=== PATIENT | male | born 1970 | race Asian ===

== ENCOUNTER 2021-04-18 07:49 | Day surgery (SDC) | payer OTHER, SELFPAY ==
[~2021-04-18] VITALS: Ht 165.1 cm; Wt 63.5 kg
[2021-04-18] MEDS ORDERED: INDOMETHACIN 50 MG SUPP.RECT RC ONE (08:00)
[2021-04-18] MEDS ORDERED: NS IRRIG SOLN 1000 ML IR ONE (10:35)
[2021-04-18] MEDS ORDERED: fentaNYL CITRATE/PF 100 MCG/2 ML AMP IVP ONE (10:35)
[2021-04-18] MEDS ORDERED: MIDAZOLAM HCL 5 MG/5 ML VIAL IVP ONE (10:35)
[2021-04-18] MEDS ORDERED: LR 500 ML IV.SOLN IV ONE (10:35)
[2021-04-18] MEDS ORDERED: ISOVUE-300 (IOPAMIDOL) 100 ML INFUS..BTL IV ONE (10:35)
[2021-04-18] MEDS ORDERED: NS 1000 ML IV.SOLN IV ONE (10:35)
[2021-04-18] MEDS ORDERED: PROPOFOL 200MG/ 20ML VIAL (DIPRIVAN) IV ONE (10:35)
[2021-04-18] MEDS ORDERED: ONDANSETRON HCL 4 MG/2 ML VIAL IVP PRN (11:00)
[2021-04-18] MEDS ORDERED: fentaNYL CITRATE/PF 100 MCG/2 ML AMP IVP PRN (11:00)
[2021-04-18] MEDS ORDERED: fentaNYL CITRATE/PF 100 MCG/2 ML AMP ONE (11:48)
[2021-04-18] MEDS: fentaNYL CITRATE/PF 100 MCG/2 ML AMP IVP PRN ×2 (11:57→12:04)
[2021-04-18] MEDS ORDERED: EPINEPHrine JECT 0.1 MG/ML SYR ONE (12:20)
[2021-04-18 14:06] VITALS: BP_SYST 101
== END 2021-04-18 13:40 | disposition home or self-care (01) ==
LOC: SDS 07:49
PROVIDERS: ATTEND Internal Medicine
DX: K80.50 Calculus of bile duct without cholangitis or cholecystitis without obstruction (principal); E78.5 Hyperlipidemia, unspecified; Z79.899 Other long term (current) drug therapy
CPT/HCPCS: 43262; 43264; 76000; C1769; J0171; J2250; J2704; J3010; J7030; Q9967 ×2; J7120